=== PATIENT | male | born 1940 | race Caucasian/White ===

== ENCOUNTER 2024-10-04 15:01 | Observation (INO) ==
--- NOTE | 2024-10-04 15:28 | Emergency Department Note ---
History of Present Illness General Chief complaint: Cardiac Assessment Stated complaint: SWEATS, WEAKNESS, TIRED Time Seen by Provider: 10/04/24 15:14 History of Present Illness This is an 83-year-old male referred by PCP with complaints of "sweating, weakness, tired". The patient states that this past Wednesday he was outside painting a wall on his home. He states that while doing this he then felt sick, overwhelmed, and became drenched in sweat. He notes that he then went inside and dried off. He continued to feel tired. Blood pressure checked at that time and per was 87/52. He notes he has not felt well since that time. Patient notes this past Wednesday he tried going to [employer] but could not do so as he felt "beat". Patient does note exertional shortness of breath for some time now, nothing new. He denies any fevers. No chest pain at all. At the present time he feels okay. Home Medications Medication Instructions Recorded Confirmed Type aspirin 81 mg tablet,delayed 81 mg PO QAM 07/28/19 10/04/24 History release (Macario Low Dose Aspirin) atorvastatin 80 mg tablet 80 mg PO PM 07/28/19 10/04/24 History multivitamin 1 tab PO QPM 07/28/19 10/04/24 History omega 0-gxc-lxo-fish oil 1,200 mg 1 cap PO QPM 07/28/19 10/04/24 History (144 mg-216 mg) capsule (Fish Oil) tamsulosin 0.4 mg capsule 0.4 mg PO QPM 07/28/19 10/04/24 History warfarin 5 mg tablet 5 mg PO 3XWK 07/28/19 10/04/24 History azelastine 137 mcg (0.1 %) nasal 1 spray intranasal BID 10/04/24 10/04/24 History spray levothyroxine 75 mcg tablet 75 mcg PO DAILY 10/04/24 10/04/24 History (Unithroid) metoprolol succinate 50 mg 25 mg PO QAM 10/04/24 10/04/24 History tablet,extended release 24 hr sacubitril 24 mg-valsartan 26 mg 1 tab PO BID 10/04/24 10/04/24 History tablet (Entresto) Allergies Allergy/AdvReac Type Severity Reaction Status Date / Time No Known Allergies Allergy Unknown Verified 04/15/22 13:04 Past Med/Surg History Problem List (Updated 10/04/24 @ 21:30 by Daniel June PA-C) Hypotensive episode (Acute) Ischemic cardiomyopathy Spinal stenosis of lumbar region with radiculopathy Medical History (Updated 10/04/24 @ 21:30 by Daniel June PA-C) History of complete heart block 1979 - reason for pacemaker Osteoarthritis Spinal stenosis Degenerative disc disease Chronic back pain BPH (benign prostatic hyperplasia) Hypothyroidism On anticoagulant therapy warfarin daily Hearing deficit Pacemaker initially placed in 1979 --> most recently placed in 10/2019 Medtronic device. Myocardial Infarction 2006--follows with Dr. Abreu Hypertension Hyperlipidemia Surgical History S/P cardiac pacemaker procedure exchanged in 10/[address] Stock --> medtronic device. last checked "a couple weeks ago" S/P epidural steroid injection caudal epidural steroid injection History of tooth extraction full upper/partial lower History of tonsillectomy and adenoidectomy History of bilateral cataract extraction [place] heart [place] [facility] [place] [facility] [place] stent [place] Family History Other No family history of adverse response to anesthesia Social History Smoking Status: Never smoker Second Hand Exposure: No; Do You Dip or Chew Tobacco: No; Hx Alcohol Use: No Hx Substance Use: No Preferred Language: Central African Communication Ability: Effective Copy Lathe Tender Required: No Beliefs That Will Affect Care: None Current Living Situation: Spouse Feels Safe at Home: Yes Assistive Devices: Denture - Upper, Denture - Lower, Glasses and Hearing Aid - Bilateral Review of Systems A total of 10 systems reviewed and were otherwise negative Physical Exam Vital Signs Vital Signs - 24 hr 10/04/24 15:05 10/04/24 15:21 10/04/24 15:28 Temperature 36.3 C L Temperature Source Temporal Artery Scan Pulse Rate 75 70 70 Pulse Rate from SpO2 Sensor 70 Pulse Rhythm Regular Respiratory Rate 16 24 16 Respiratory Effort / Characteristics Non-Labored Spontaneous Respiratory Depth Normal Blood Pressure 134/74 139/78 Blood Pressure Mean 94 98 Pulse Oximetry 95 97 95 Oxygen Delivery Method Room Air Room Air Sepsis New/Unexplained Change in Mental Status No Sepsis Action Taken by Nursing No Action Required 10/04/24 15:29 10/04/24 15:45 10/04/24 16:03 Temperature Temperature Source Pulse Rate 70 70 Pulse Rate from SpO2 Sensor 70 Pulse Rhythm Respiratory Rate 18 Respiratory Effort / Characteristics Respiratory Depth Blood Pressure 121/74 Blood Pressure Mean 89 Pulse Oximetry 96 95 Oxygen Delivery Method Room Air Sepsis New/Unexplained Change in Mental Status Sepsis Action Taken by Nursing 10/04/24 16:41 10/04/24 17:02 Temperature Temperature Source Pulse Rate 70 70 Pulse Rate from SpO2 Sensor 70 70 Pulse Rhythm Respiratory Rate 22 18 Respiratory Effort / Characteristics Respiratory Depth Blood Pressure 141/75 H 128/76 Blood Pressure Mean 97 93 Pulse Oximetry 95 95 Oxygen Delivery Method Sepsis New/Unexplained Change in Mental Status Sepsis Action Taken by Nursing VITAL SIGNS - Vital signs and nursing notes were reviewed. Stable and afebrile. GENERAL -83-year-old male appearing his stated age who is in no acute distress. Communicates well with provider and answers questions appropriately. SKIN - Without rashes. No meningeal or petechial rash. HEAD - NC/AT. EYES - PERRL with EOMI bilaterally. Sclera anicteric. EARS - No deformities of external structures noted on gross examination bilaterally. NOSE - Midline and without cyanosis. No epistaxis or purulent drainage noted. MOUTH/OROPHARYNX - Without perioral cyanosis. NECK - Neck with FROM. No nuchal rigidity. LUNGS - CTA CARDIAC - RRR ABDOMEN - Abdominal contour normal without pulsations or visible masses. BS normoactive all four quadrants. No tenderness, palpable masses, hepatosplenomegaly, or ascites noted. EXTREMITIES - No clubbing or peripheral cyanosis. +5/5 strength noted in UE/LE bilaterally. NEUROLOGIC - Cranial nerves II through XII grossly intact. PSYCH -alert, oriented and pleasant on exam. Medical Decision Making Laboratory Data 10/04/24 15:19 10/04/24 15:19 Lab Results 10/04/24 Range/Units 15:19 WBC 9.57 (4.8-10.8) K/ul RBC 4.45 L (4.70-6.10) M/uL Hgb 14.8 (14.0-18.0) g/dl Hct 41.7 L (42.0-52.0) % MCV 93.7 (80.0-100.0) fL MCH 33.3 (25.0-34.0) pg MCHC 35.5 (32.0-36.0) g/dL RDW Std Deviation 45.0 (36.4-46.3) fL RDW Coeff of Radha 13.2 (11.5-14.5) % Plt Count 162 (130-400) K/uL MPV 9.7 (9.4-12.4) fL Immature Gran % (Auto) 0.2 % Neut % (Auto) 37.1 % Lymph % (Auto) 44.5 % [place] % (Auto) 10.2 % Eos % (Auto) 7.3 % Baso % (Auto) 0.7 % Neut # (Auto) 3.54 (1.40-6.50) K/uL Lymph # (Auto) 4.26 H (1.20-3.40) K/uL [place] # (Auto) 0.98 H (0.11-0.59) K/uL Eos # (Auto) 0.70 H (0.00-0.50) K/uL Baso # (Auto) 0.07 (0.00-0.20) K/uL Immature Gran # (Auto) 0.02 (0.01-0.20) K/uL PT 17.8 H (9.0-12.0) Seconds INR 1.7 H (0.9-1.1) APTT 32 H (21-31) Seconds PTT Ratio 1.2 Sodium 137 (136-145) mmol/L Potassium 3.9 (3.5-5.1) mmol/L Chloride 105 (98-107) mmol/L Carbon Dioxide 27 (21-32) mmol/L Anion Gap 5 (3-11) BUN 20 (6-23) mg/dl Creatinine 0.89 (0.6-1.4) mg/dl Est Cr Clr Drug Dosing 57.8 ml/min eGFR 84.50 BUN/Creatinine Ratio 22.5 H (10-20) Glucose 84 (70-99(Fasting)) mg/dl Calcium 8.8 (8.6-10.3) mg/dl Magnesium 2.2 (1.7-2.4) mg/dl Total Bilirubin 0.8 (0.2-1.0) mg/dl AST 19 (13-39) U/L ALT 16 (7-52) U/L Alkaline Phosphatase 85 (34-104) U/L Troponin I High Sens 6.9 (0-20) pg/ml B-Natriuretic Peptide 210 H (0-100) pg/ml Total Protein 6.8 (6.0-8.3) gm/dl Albumin 3.8 (3.4-5.0) gm/dl Globulin 3.0 (2.5-4.0) gm/dl Albumin/Globulin Ratio 1.3 (0.9-2) TSH 2.264 (0.300-4.500) uIu/ml Imaging Data Radiologist's Impression: Chest X-Ray 10/04/24 15:28 XR chest 1V portable CLINICAL HISTORY: diaphoresis, tired COMPARISON STUDY: 07/07/2006 FINDINGS: Right-sided pacemaker is present. There are old left-sided pacemaker leads. There is mild cardiomegaly without pulmonary vascular congestion. No consolidation or pleural effusion. No pneumothorax. IMPRESSION: No acute findings. ACT 112: Negative or not required by law. Electronically signed by: Cy Gutierrez M.D. 10/04/2024 3:45 PM MDM Narrative Patient was seen and evaluated as above in room B04. Review was performed of triage nursing notes and vital signs. I did review pertinent previous visits and patient history. After obtaining a thorough history and physical examination the above work up was performed. Patient presents to us today for evaluation of the above symptoms. The patient feels okay at this time but overall tired. There is no chest pain. He was referred by PCP. Options of care were discussed with the patient and at bedside. IV access was established. Labs were drawn. EKG per my interpretation shows a paced rhythm at a rate of 74 bpm. QTc 412. QRS 86. There are ST depressions noted in lead II, V6. T wave inversions are noted throughout much of the rhythm tracing. Previous to compare was from 2006 in EMR here. We will check the [email or web address] record for a more current EKG for comparison. Our ED medical case manager were able to access the [email or web address] system to provide recent cardiology visit dated 06/20/2024. Last 2D echocardiogram dated July 01, 2023 showed that the left ventricular cavity size was mildly enlarged. Wall thickness was mildly increased in segments with normal wall motion. Large sized apical, septal, anteroseptal, anterior, inferior and lateral wall motion abnormality with mild hypokinesis to dyskinesis of the segments. Moderate size septal and anterior septal scar. Qualitative LVEF at that time was 25 to 29%. LV diastolic function mildly abnormal. Moderate aortic valve sclerosis. 1640 HRS: I spoke with Dr. Samuels, [facility] fruit grader operator. We reviewed the case. My plan at this time is medical admission. He does recommend decreasing the Entresto by half. The patient may have sustained a hypotensive event causing his symptoms over the weekend. We will further evaluate in the hospital setting. I discussed the case with the hospitalist service. I do believe that further evaluation and management inpatient setting is warranted. There is no leukocytosis or concerning anemia. INR 1.7. No emergent metabolic disturbance. Troponin x 1 negative. BNP 210. TSH shows euthyroid state. GCS: 15 In the evaluation and treatment of this patient the following differential diagnoses were entertained: [place], PE, episode of hypotension, among others. Impression & Plan Hypotensive episode Discharge Plan Visit Data Chief Complaint: Cardiac Assessment Stated Complaint: SWEATS, WEAKNESS, TIRED ED Provider: Anastacio Parr ED Midlevel Provider: Daniel June Discharge Problem: Hypotensive episode Patient Disposition: Admitted As Inpatient Condition: Good
[2024-10-04 15:40] LABS: Hematocrit (blood only) 41.7 % (42.0-52.0); Hemoglobin 14.8 g/dl (14.0-18.0); Immature Granulocytes # (auto) 0.02 K/uL (0.01-0.20); Immature Granulocytes % (auto) 0.2 %; Mean Corpuscular Hemoglobin 33.3 pg (25.0-34.0); Mean Corpuscular Volume 93.7 fL (80.0-100.0); Platelet Count 162 K/uL (130-400); RDW Standard Deviation 45.0 fL (36.4-46.3); Red Blood Count 4.45 M/uL (4.70-6.10); White Blood Count 9.57 K/ul (4.8-10.8)
--- NOTE | 2024-10-04 15:46 | XRay Report ---
XR chest 1V portable CLINICAL HISTORY: diaphoresis, tired COMPARISON STUDY: 07/07/2006 FINDINGS: Right-sided pacemaker is present. There are old left-sided pacemaker leads. There is mild c ardiomegaly without pulmonary vascular congestion. No consolidation or pleural effusion. No pneumotho rax. IMPRESSION: No acute findings. ACT 112: Negative or not required by law. Electronically signed by: Cy Gutierrez M.D. 10/04/2024 3:45 PM
[2024-10-04 16:02] LABS: Alanine Aminotransferase 16.0 U/L (7-52); Albumin Globulin Ratio 1.3 (0.9-2); Alkaline Phosphatase 85.0 U/L (34-104); Anion Gap 5.0 (3-11); Bilirubin,Total 0.8 mg/dl (0.2-1.0); Blood Urea Nitrogen 20.0 mg/dl (6-23); Calcium 8.8 mg/dl (8.6-10.3); Carbon Dioxide 27.0 mmol/L (21-32); Chloride 105.0 mmol/L (98-107); Creatinine Clr Calc Pharmacy 57.8 ml/min; Globulin 3.0 gm/dl (2.5-4.0); Glucose 84.0 mg/dl (70-99(Fasting)); Magnesium 2.2 mg/dl (1.7-2.4); Potassium 3.9 mmol/L (3.5-5.1); Sodium 137.0 mmol/L (136-145); Total Protein 6.8 gm/dl (6.0-8.3)
[2024-10-04 16:16] LABS: INR 1.7 (0.9-1.1); Partial Thromboplastin Time 32 Seconds (21-31); Prothrombin Time 17.8 Seconds (9.0-12.0)
[2024-10-04 16:19] LABS: Thyroid Stimulating Hormone 2.264 uIu/ml (0.300-4.500)
--- NOTE | 2024-10-04 17:16 | History & Physical Report ---
<Statement entered by Chalo Morrison, - 10/04/24 18:18> Patient seen and examined at bedside #Hypotension -Likely secondary to cardiac GDT+ dehydration. entresto dose to be decreased per cardiology. For stress test tomorrow. NPO after MN. Date of Service October 04, 2024 Assessment & Plan (1) History of complete heart block: (2) Hypertension: (3) Hyperlipidemia: (4) Ischemic cardiomyopathy: (5) On anticoagulant therapy: (6) Hypothyroidism: (7) BPH (benign prostatic hyperplasia): (8) Spinal stenosis: (9) Degenerative disc disease: (10) Chronic back pain: Plan Episode of hypotension CAD, hx of [place] in 2006 Ischemic cardiomyopathy, EF 25 to 29% HTN HLD Chronic anticoagulation - Admit to med/tele - consult cardiology, appreciate recommendations, reducing Entresto by half, planning for nuclear stress test in the morning, make n.p.o. at midnight, - On metoprolol succinate 25 mg daily in am , was reduce in the beginning of June for similar c/o lightheadedness/headache as there was concern for low BP - EKG reviewed showing a paced rhythm - BNP 210, - INR 1.7 , trend with am labs - warfarin therapy: Home dose regimen includes: Takes 5 mg on MW, and 2.5 mg on all other days Cardiac pacemaker in situ - Pacemaker originally placed 1980, replaced 1985, 1992 right side pacemaker, 2006 pacemaker replaced [employer] model [id number]), AAA - Measuring 4.5 cm on most recent aortic duplex done in November 2023, next is scheduled for this Nov 2024 as outpatient. DDD Chronic back pain -chronic, stable Hypothyroidism - Continue levothyroxine 75 mcg daily - using Unithyroid currently - pts is not satisfied with this, would like Rx for synthroid brand name. Requested she continue discussion with her PCP. BPH - Cont flomax Osteoarthritis Chronic low back pain - Stable DVT ppx: teds, scds Lines: PIV x 1 FEN/GI: HH, NPO at midnight CODE: Full code Dispo: From home, likely to remain in the hospital x 1-2 days I spent a total of 75 minutes with greater than 50% of that time face to face with the patient, personally reviewing all current laboratories, imaging studies, past medication reconciliation, outpatient chart review, and discussion with specialists to collaborate care for the patient excluding time spent in the performance of separately billed services or time spent by another provider/QHP. Please see attending documentation for corrections and/or additions. History of Present Illness Chief Complaint: Weakness Primary Care Provider: Neel Dow MD This is a 83 yo M with PMhx CAD, ischemic cardiomyopathy with EF 25 to 29%,, dyslipidemia, AAA measuring 4.5 cm on 12/01/2023 on last abdominal aortic duplex, permanent pacemaker in situ (originally placed 1980, replaced 1985, 1992 right side pacemaker, 2006 pacemaker replaced [employer] model [id number]), who has had previous issues with low blood pressure and dizziness. He was seen by his outpatient professor of finance on 06/20/2024 where this was a complaint at that time experiencing lightheadedness, as well as headaches. He is on metoprolol succinate 25 mg daily, Entresto 24-26 mg daily. today the patient presents with his and they report episode of hypotension over the weekend with BP of 87/52. He had been working on his house and painting a wal outside in 90 degree heat. On Wednesday he attempted to go to [employer] however due to feeling weak and not well he went back home to rest. His , Kristin is present at bedside and supports the history. She reports that she is the one who made him come to the ER today for further evaluation. Today he presents to the ER. EKG is negative, showing a paced rhythm, INR 1.7, negative troponin, BNP 210, no leukocytosis afebrile, vital signs are stable. Allergies Allergy/AdvReac Type Severity Reaction Status Date / Time No Known Allergies Allergy Unknown Verified 04/15/22 13:04 Home Medications Medication Instructions Recorded Confirmed Type aspirin 81 mg tablet,delayed 81 mg PO QAM 07/28/19 10/04/24 History release (Macario Low Dose Aspirin) atorvastatin 80 mg tablet 80 mg PO PM 07/28/19 10/04/24 History multivitamin 1 tab PO QPM 07/28/19 10/04/24 History omega 8-xwa-rku-fish oil 1,200 mg 1 cap PO QPM 07/28/19 10/04/24 History (144 mg-216 mg) capsule (Fish Oil) tamsulosin 0.4 mg capsule 0.4 mg PO QPM 07/28/19 10/04/24 History warfarin 5 mg tablet 5 mg PO 3XWK 07/28/19 10/04/24 History azelastine 137 mcg (0.1 %) nasal 1 spray intranasal BID 10/04/24 10/04/24 History spray levothyroxine 75 mcg tablet 75 mcg PO DAILY 10/04/24 10/04/24 History (Unithroid) metoprolol succinate 50 mg 25 mg PO QAM 10/04/24 10/04/24 History tablet,extended release 24 hr sacubitril 24 mg-valsartan 26 mg 1 tab PO BID 10/04/24 10/04/24 History tablet (Entresto) Past Med/Surg History Problem List (Updated 10/04/24 @ 17:13 by Nata French PA-C) Ischemic cardiomyopathy Spinal stenosis of lumbar region with radiculopathy Medical History (Updated 10/04/24 @ 17:13 by Nata French PA-C) History of complete heart block 1979 - reason for pacemaker Osteoarthritis Spinal stenosis Degenerative disc disease Chronic back pain BPH (benign prostatic hyperplasia) Hypothyroidism On anticoagulant therapy warfarin daily Hearing deficit Pacemaker initially placed in 1979 --> most recently placed in 10/2019 Medtronic device. Myocardial Infarction 2006--follows with Dr. Abreu Hypertension Hyperlipidemia Surgical History S/P cardiac pacemaker procedure exchanged in 10/[address] Stock --> medtronic device. last checked "a couple weeks ago" S/P epidural steroid injection caudal epidural steroid injection History of tooth extraction full upper/partial lower History of tonsillectomy and adenoidectomy History of bilateral cataract extraction History of heart artery stent 2006 1 at [facility] [place] History of cardiac cath 2006 @ [facility] [place] with 1 stent placed Family History Other No family history of adverse response to anesthesia Social History Smoking Status: Never smoker Second Hand Exposure: No; Do You Dip or Chew Tobacco: No; Hx Alcohol Use: No Hx Substance Use: No Preferred Language: Ethiopian Communication Ability: Effective Rn Training Required: No Beliefs That Will Affect Care: None Current Living Situation: Spouse Feels Safe at Home: Yes Assistive Devices: Denture - Upper, Denture - Lower, Glasses and Hearing Aid - Bilateral Review of Systems Review of Systems: Constitutional: No fever, sweats or chills Eyes: No diplopia, no worsening or blurred vision ENT: normal hearing, no trouble swallowing Respiratory: No cough, sputum, dyspnea at rest or on exertion Cardiovascular: No chest pain, tightness or palpitations Abdomen: No pain, nausea, vomiting, diarrhea or constipation Musculoskeletal: No joint pain, calf pain, swelling Neurologic: No weakness, numbness/tingling, or balance problems Psychiatric: No anxiety or depression Skin: No rash or itch Physical Exam Physical Exam: General: awake, alert, no apparent distress, white male Head: Normocephalic, atraumatic ENT: PERRL, EOMI, no pharyngeal exudate, mucous membranes moist Chest: Clear to auscultation, on room air, no adventitious breath sounds Cardiac: Regular rate and rhythm, no murmur, no JVD, normal peripheral pulses, good capillary refill Abdominal: NABS x 4 quadrants, soft, nondistended, nontender to palpation, no rebound or guarding Extremities: Normal inspection, no peripheral edema or erythema, calfs nontender to palpation Psych: Normal mood and affect Neuro: AAO x 3, strength intact bilaterally and rated 5/5, no motor deficits, speech is clear, no peripheral sensory deficits Results & Data Results & Data Vital Signs (Past 12 Hours) Vital Signs Temp Pulse Resp BP Pulse Ox O2 Del Method 10/04/24 15:45 70 10/04/24 15:29 96 Room Air 10/04/24 15:28 70 16 95 Room Air 10/04/24 15:05 36.3 C L 75 16 134/74 95 Room Air Laboratory Results 10/04/24 15:19 WBC 9.57 RBC 4.45 L Hgb 14.8 Hct 41.7 L MCV 93.7 MCH 33.3 MCHC 35.5 RDW Std Deviation 45.0 RDW Coeff of Radha 13.2 Plt Count 162 MPV 9.7 Immature Gran % (Auto) 0.2 Neut % (Auto) 37.1 Lymph % (Auto) 44.5 [place] % (Auto) 10.2 Eos % (Auto) 7.3 Baso % (Auto) 0.7 Neut # (Auto) 3.54 Lymph # (Auto) 4.26 H [place] # (Auto) 0.98 H Eos # (Auto) 0.70 H Baso # (Auto) 0.07 Immature Gran # (Auto) 0.02 PT 17.8 H INR 1.7 H APTT 32 H PTT Ratio 1.2 Sodium 137 Potassium 3.9 Chloride 105 Carbon Dioxide 27 Anion Gap 5 BUN 20 Creatinine 0.89 Est Cr Clr Drug Dosing 57.8 eGFR 84.50 BUN/Creatinine Ratio 22.5 H Glucose 84 Calcium 8.8 Magnesium 2.2 Total Bilirubin 0.8 AST 19 ALT 16 Alkaline Phosphatase 85 Troponin I High Sens 6.9 B-Natriuretic Peptide 210 H Total Protein 6.8 Albumin 3.8 Globulin 3.0 Albumin/Globulin Ratio 1.3 TSH 2.264 Diagnostic Findings Chest X-Ray 10/04/24 15:28 XR chest 1V portable CLINICAL HISTORY: diaphoresis, tired COMPARISON STUDY: 07/07/2006 FINDINGS: Right-sided pacemaker is present. There are old left-sided pacemaker leads. There is mild cardiomegaly without pulmonary vascular congestion. No consolidation or pleural effusion. No pneumothorax. IMPRESSION: No acute findings. ACT 112: Negative or not required by law. Electronically signed by: Cy Gutierrez M.D. 10/04/2024 3:45 PM Code Status & VTE Plan Code Status Full code - discussed with the patient and at bedside
[2024-10-04] MEDS ORDERED: ACETAMINOPHEN 325 MG TAB PO PRN (21:27)
[2024-10-04] MEDS ORDERED: ONDANSETRON INJ 2 MG/ML 2 ML VIAL IV PRN (21:27)
[2024-10-04] MEDS: OMEGA-3 (PURIFIED FISH OIL) 1 GM CAP PO SCH (23:16)
[2024-10-04] MEDS: AZELASTINE HCL 0.1% NASAL 200 SPRAYS/27,400 MCG BTL SCH (23:16)
[2024-10-04] MEDS: MULTIVITAMIN TAB PO SCH (23:16)
[2024-10-04] MEDS: ATORVASTATIN 40 MG TAB PO SCH (23:16)
[2024-10-04] MEDS: WARFARIN SOD 5 MG TAB PO SCH (23:16)
[2024-10-04] MEDS: TAMSULOSIN HCL 0.4 MG CAP PO SCH (23:16)
[2024-10-04] MEDS: VALSARTAN/SACUBITRIL 26/24MG TAB PO SCH (23:22)
[2024-10-05] MEDS: LEVOTHYROXINE SODIUM 75 MCG TABLET PO SCH (06:24)
[2024-10-05 06:48] LABS: Hematocrit (blood only) 37.4 % (42.0-52.0); Hemoglobin 13.3 g/dl (14.0-18.0); Mean Corpuscular Hemoglobin 32.8 pg (25.0-34.0); Mean Corpuscular Volume 92.3 fL (80.0-100.0); Platelet Count 142 K/uL (130-400); RDW Standard Deviation 44.9 fL (36.4-46.3); Red Blood Count 4.05 M/uL (4.70-6.10); White Blood Count 7.35 K/ul (4.8-10.8)
[2024-10-05 07:06] LABS: Anion Gap 5.0 (3-11); Blood Urea Nitrogen 19.0 mg/dl (6-23); Calcium 8.6 mg/dl (8.6-10.3); Carbon Dioxide 26.0 mmol/L (21-32); Chloride 108.0 mmol/L (98-107); Creatinine Clr Calc Pharmacy 66.9 ml/min; Glucose 99.0 mg/dl (70-99(Fasting)); Potassium 4.0 mmol/L (3.5-5.1); Sodium 139.0 mmol/L (136-145)
[2024-10-05 07:11] LABS: INR 1.5 (0.9-1.1); Prothrombin Time 15.6 Seconds (9.0-12.0)
[2024-10-05] MEDS ORDERED: REGADENOSON 0.4 MG/5 ML SYR IV ONE (07:59)
--- NOTE | 2024-10-05 08:07 | Cardiology Consultation ---
Date of Consultation October 05, 2024 Assessment & Plan (1) Hypotensive episode: (2) Diaphoresis: (3) Ischemic cardiomyopathy: (4) CAD (coronary artery disease): Plan Patient is a complex 83 year old male with history of CAD/ischemic cardiomyopathy, admitted after an episode of acute weakness, dizziness, diaphoresis and hypotension occurring several days ago after working outside in his yard. He contacted cardio and PCP 2 days after event with ongoing symptoms of fatigue and low BP. He was referred to ER for further evaluation. Work up in ER included negative HS troponin x1. (Repeat pending) Other labs unremarkable. Entresto reduced to 26/24 - 1/2 tab BID given hypotension Continue metoprolol 25 mg daily continue ASA and statin. Interrogate Medtronic pacemaker device to r/o arrhythmias at onset of his dizziness/diaphoresis. Med[employer] rep notified to watch for transmission from nurses He has a complex history of cardiovascular disease with prior anterior OH in 2006 and residual distal RCA stenosis in 2008. No recent ischemic work up. Given his symptoms occurred while working outside, recommend nuclear Lexiscan stress test to r/o inducible ischemia. Await 2nd troponin. It is likely his nuclear will demonstrate prior old anterior OH as per his his tory. he has been on chronic anticoagulation with Coumadin to prevent LV thrombus given his history of apical dyskinesis/anterior OH. INR was subtherapeutic on arrival at 1.5 mg Coumadin dose is 2.5 mg alternative with 5 mg every other day. Give 5 mg today. Further recommendations pending review of nuclear Lexiscan stress test Case discussed with Dr. Parikh I spent a total of 60 minutes on the date of service in preparation, delivery, and documentation of the care provided to this patient, excluding any time spent in the performance of separately billed services. Nikki Oneill PA-C Department of Cardiology, [facility] This chart was completed in part utilizing Speech Voice Recognition Software. Grammatical errors, random word insertions, pronoun errors, and incomplete sentences are an occasional consequence of this system due to software limitations, ambient noise, and hardware issues. Any formal questions or concerns about the content, text, or information contained within the body of this dictation should be directly addressed to the provider for clarification. Supervising Physician Co-Signing Physician Notes Attending attestation: Case reviewed with the advanced practitioner. I have personally performed a history and physical examination on the patient. I have reviewed the advanced practitioner's documentation on the date of service referenced in note, and I agree with, and take responsibility for the plan of care. Subjective: Patient seen prior to, during, and after nuclear stress test. Feeling well during my assessment. Tolerated nuclear stress test well with the exception of side effects of headache and epigastric discomfort that resolved early in the post-rest recovery interval. Telemetry reveals sinus rhythm with occasional ventricular paced QRS complexes. Exam: Cardiovascular: Regular rhythm, no murmur, no edema Chest: Right infraclavicular device pocket clean dry and intact, site of the previous left-sided pacemaker clean dry and intact without erythema Data: EKG performed on presentation and noted again during the stress test revealed sinus rhythm with an age-indeterminate anterior infarct pattern with Q waves noted in leads V1-V3 and diffuse inferolateral T wave inversions otherwise. Per review of historical EKG tracings, he is typically ventricular paced so it is uncertain whether or not the repolarization abnormalities are b2b sales representative of an acute change. Nuclear stress test is negative for inducible ischemia with a large fixed perfusion defect consistent with left anterior descending coronary territory scar without superimposed ischemia. The calculated left ventricular ejection fraction of 30% is felt to likely be an overestimation of the ejection fraction related to technique, and ejection fraction is likely better assessed on the echocardiogram dating back to Jun, 2023. Remote Medtronic dual-chamber permanent pacemaker interrogation performed. Data reviewed independently and discussed with the [employer] b2b sales representative. Underlying rhythm sinus rhythm. Atrial paced 100% the time, ventricular paced 86% of the time Due to her longevity stable at 6.3 years Lead impedance stable Thresholds stable Most recent episode of nonsustained VT took place on 02/25/2024 and was 2 seconds in duration. -- No arrhythmias recorded however correlate with the patient's recent symptoms. Impression As noted above Plan: Entresto reduced to 26/24 - 1/2 tab BID given hypotension Continue metoprolol 25 mg daily continue ASA and statin. Stable from cardiology perspective for discharge on medications as noted. I spent a total of 25 minutes coordinating, documenting, and providing care for this patient excluding time spent in the performance of separately billed services or time spent by another provider. Regino Parikh DO History of Present Illness Reason for Consultation: Weakness; Hypotension; diaphoresis [facility]ing [facility] Attending [facility]: Dr. Jl History of Present Illness Patient is an 83 year old male who presented to [facility] with complaints of dizziness, diaphoresis, weakness, and hypotension over the last few days. Symptoms began while working outside in his yard on Saturday 09/30 in the heat. He became acutely dizzy/lightheaded with diaphoresis and nausea. checked HR and BP. BP was low in the 80's/50's. He tried to hydrate and slowly felt better through the day on Wednesday. However he reports he was still feeling "off" the next few days and notified the PCP and cardio office yesterday on 10/04 about his symptoms and PCP recommended ER evaluation. He denied actual chest pain or SOB with this event. He reports intermittent low BP over the last few months, often in the 80's. Due to hypotension, metoprolol was recently reduced from 50 to 25 mg daily. This mildly aided his low readings. He remained on low dose Entresto 26/24 BID. History : 1. CAD -history of OH and BMS placement to LAD in 2006; repeat cath in 2008 with patent stent and RCA distal stenosis (med management recommended) 2. Ischemic cardiomyopathy with prior anterior OH, chronic Coumadin due to apical dyskinesis and high risk for LV mural thrombus - LVEF 25% 3. dyslipidemia 4. Abdominal aortic aneurysm - 4.5 cm per duplex in 11/2023 5. pacemaker - dual chamber pacemaker since 1979 - Now right sided with retained leads on the left (no ICD) - most recent gen change was in Oct 2019 with Medtronic device On arrival to ER, BP acceptable. Labs unremarkable including HS troponin negative x1. Repeat pending this morning. EKG demonstrating atrial paced rhythm with ventricular sensing and diffuse T wave inversions. No recent EKG to compare as he is typically chronically V-Paced (86%) per last device interrogation. No recent EKG with ventricular sensing to compare. Entresto reduced due to 1/2 tab BID on admission (26/24 mg dose) BP was low this morning but no symptoms. INR was subtherapeutic. Chest X-ray was without acute process. At time of consult, patient just returned from his stress test. Currently he feels "great". Hoping to go home. No recurrent symptoms. Entresto reduced on admission. BP remains slightly low this morning but he feels this is his baseline. No chest pain or SOB. No orthopnea, PND or edema. No dizziness. Allergies Allergy/AdvReac Type Severity Reaction Status Date / Time No Known Allergies Allergy Unknown Verified 04/15/22 13:04 Home Medications Medication Instructions Recorded Confirmed Type aspirin 81 mg tablet,delayed 81 mg PO QAM 07/28/19 10/04/24 History release (Macario Low Dose Aspirin) atorvastatin 80 mg tablet 80 mg PO PM 07/28/19 10/04/24 History multivitamin 1 tab PO QPM 07/28/19 10/04/24 History omega 8-euv-xkh-fish oil 1,200 mg 1 cap PO QPM 07/28/19 10/04/24 History (144 mg-216 mg) capsule (Fish Oil) tamsulosin 0.4 mg capsule 0.4 mg PO QPM 07/28/19 10/04/24 History warfarin 5 mg tablet 5 mg PO 3XWK 07/28/19 10/04/24 History azelastine 137 mcg (0.1 %) nasal 1 spray intranasal BID 10/04/24 10/04/24 History spray levothyroxine 75 mcg tablet 75 mcg PO DAILY 10/04/24 10/04/24 History (Unithroid) metoprolol succinate 50 mg 25 mg PO QAM 10/04/24 10/04/24 History tablet,extended release 24 hr sacubitril 24 mg-valsartan 26 mg 1 tab PO BID 10/04/24 10/04/24 History tablet (Entresto) Patient History Medical History History of complete heart block 1979 - reason for pacemaker Osteoarthritis Spinal stenosis Degenerative disc disease Chronic back pain BPH (benign prostatic hyperplasia) Hypothyroidism On anticoagulant therapy warfarin daily Hearing deficit Pacemaker initially placed in 1979 --> most recently placed in 10/2019 Medtronic device. Myocardial Infarction 2006--follows with Dr. Abreu Hypertension Hyperlipidemia Surgical History S/P cardiac pacemaker procedure exchanged in 10/[address] Stock --> medtronic device. last checked "a couple weeks ago" S/P epidural steroid injection caudal epidural steroid injection History of tooth extraction full upper/partial lower History of tonsillectomy and adenoidectomy History of bilateral cataract extraction History of heart artery stent 2006 1 at [facility] [place] History of cardiac cath 2007 @ [facility] [place] with 1 stent placed Family History Other No family history of adverse response to anesthesia Social History Smoking Status: Former smoker Tobacco Type: Cigarettes Smoking End Date: 40 yrs ago; Second Hand Exposure: No; Do You Dip or Chew Tobacco: No; Hx Alcohol Use: No Hx Substance Use: No Preferred Language: [place] Communication Ability: Effective Security Controls Assessor Required: No Beliefs That Will Affect Care: None Current Living Situation: Spouse Feels Safe at Home: Yes Safety Concerns: Feels Safe At This Time Assistive Devices: Denture - Upper, Denture - Lower, Glasses and Hearing Aid - Bilateral Assistive Devices Comment: lower partial Review of Systems Review of Systems: All systems reviewed & are unremarkable except as noted in HPI & below Physical Exam Constitutional: WD/WN, vitals as above no acute distress Neck: trachea midline, no thyromegaly Respiratory: normal respiratory effort, lungs clear to auscultation Cardiovascular: Rate/Rhythm: regular rate and regular rhythm Heart Sounds: no murmur Vessels: no JVD Extremities: no edema Chest (Breasts): Chest: + pacemaker (no erythema or drainage at pacer site) Gastrointestinal (Abdomen): normal bowel sounds, soft, nontender, no hepatosplenomegaly Musculoskeletal: no cyanosis or clubbing, extremities motor strength 5/5 Neurologic: PERRL, EOMI, accommodation nl, no face palsy, no dysarthria Results & Data Vital Signs (Past 12 Hours) Vital Signs Temp Pulse Pulse Resp BP Pulse Ox O2 Del Method 10/05/24 07:28 70 10/05/24 02:40 36.5 C 78 18 119/76 93 Room Air 10/04/24 23:28 36.9 C 72 18 127/80 92 Room Air 10/04/24 22:11 81 10/04/24 20:56 36.5 C 71 16 118/68 95 Room Air Laboratory Results Cardiac Enzymes 10/04/24 Range/Units 15:19 AST 19 (13-39) U/L Troponin I High Sens 6.9 (0-20) pg/ml B-Natriuretic Peptide 210 H (0-100) pg/ml Coagulation 10/04/24 10/05/24 Range/Units 15:19 06:16 PT 17.8 H 15.6 H (9.0-12.0) Seconds APTT 32 H (21-31) Seconds B-Natriuretic Peptide 210 H (0-100) pg/ml CBC 10/04/24 10/05/24 Range/Units 15:19 06:16 WBC 9.57 7.35 (4.8-10.8) K/ul RBC 4.45 L 4.05 L (4.70-6.10) M/uL Hgb 14.8 13.3 L (14.0-18.0) g/dl Hct 41.7 L 37.4 L (42.0-52.0) % Plt Count 162 142 (130-400) K/uL Neut # (Auto) 3.54 (1.40-6.50) K/uL Lymph # (Auto) 4.26 H (1.20-3.40) K/uL [place] # (Auto) 0.98 H (0.11-0.59) K/uL Eos # (Auto) 0.70 H (0.00-0.50) K/uL Baso # (Auto) 0.07 (0.00-0.20) K/uL Comprehensive Metabolic Panel 10/04/24 10/05/24 Range/Units 15:19 06:16 Sodium 137 139 (136-145) mmol/L Potassium 3.9 4.0 (3.5-5.1) mmol/L Chloride 105 108 H (98-107) mmol/L Carbon Dioxide 27 26 (21-32) mmol/L BUN 20 19 (6-23) mg/dl Creatinine 0.89 0.83 (0.6-1.4) mg/dl Glucose 84 99 (70-99(Fasting)) mg/dl Calcium 8.8 8.6 (8.6-10.3) mg/dl AST 19 (13-39) U/L ALT 16 (7-52) U/L Alkaline Phosphatase 85 (34-104) U/L Total Protein 6.8 (6.0-8.3) gm/dl Albumin 3.8 (3.4-5.0) gm/dl Intake and Output 10/04/24 10/05/24 10/05/24 22:59 06:59 14:59 Other: Weight 79.1 kg 79.4 kg Weight Measurement Method Built in [facility] Built in [facility] Diagnostic Findings Telemetry reviewed: atrial paced, ventricular sensed with T wave inversions on EKG Device interrogation - pending Nuclear stress test - pending EKG reviewed 10/04/24: Atrial paced rhythm with prolonged AV conduction ventricular sensed T wave inversion in inferolateral leads. Chest X-Ray 10/04/24 15:28 XR chest 1V portable CLINICAL HISTORY: diaphoresis, tired COMPARISON STUDY: 07/07/2006 FINDINGS: Right-sided pacemaker is present. There are old left-sided pacemaker leads. There is mild cardiomegaly without pulmonary vascular congestion. No consolidation or pleural effusion. No pneumothorax. IMPRESSION: No acute findings. ACT 112: Negative or not required by law Prior outpatient data: Pacemaker report reviewed dated Jul 2024: Appropriate function and battery longevity of 6.25 years atrial paced - 99% RV paced - 96% 0% afib burden Echo report reviewed from June 2023: 2D echocardiogram report July 01, 2023: The left ventricular cavity size is mildly enlarged. The wall thickness is mildly increased in segments with normal wall motion. There is a large sized apical, septal, anteroseptal, anterior, inferior, and lateral wall motion abnormality with mild hypokinesis to dyskinesis of the segments. There is a moderate sized septal and anteroseptal scar. The qualitative LV ejection fraction is 25-29% (severely reduced). The left ventricular diastolic function is mildly abnormal (grade I). Moderate aortic valve sclerosis is present. There is no significant valvular insufficiency There is no evidence of pulmonary hypertension. In comparison to June 18, 2022, no significant change Medications Administered Current Inpatient Medications Acetaminophen (Acetaminophen 325 Mg Tab) 650 mg PO Q4H PRN PRN Reason: Moderate Pain (Scale 4, 5, 6) Stop: 11/03/24 21:26 Aspirin (Aspirin 81 Mg Ectab) 81 mg PO QAM [facility] Stop: 11/04/24 08:59 Atorvastatin Calcium (Atorvastatin 40 Mg Tab) 80 mg PO PM [facility] Stop: 11/03/24 21:26 Last Admin: 10/04/24 23:16 Dose: 80 mg Azelastine HCl (Azelastine Hcl 0.1% Nasal 200 Sprays/27,400 Mcg Btl) 1 sprays NA BID [facility] Stop: 11/03/24 21:26 Last Admin: 10/04/24 23:16 Dose: 1 sprays Fish Oil ([place]-3 (Purified Fish Oil) 1 Gm Cap) 1 cap PO QPM [facility] Stop: 11/03/24 21:26 Last Admin: 10/04/24 23:16 Dose: 1 cap Levothyroxine Sodium (Levothyroxine Sodium 75 Mcg Tablet) 75 mcg PO DAILYBB [facility] Stop: 11/04/24 06:29 Last Admin: 10/05/24 06:24 Dose: 75 mcg Metoprolol Succinate (Metoprolol Succ 25mg Ext Rel Tab) 25 mg PO QAM [facility] Stop: 11/04/24 08:59 Multivitamins (Multivitamin Tab) 1 tab PO QPM [facility] Stop: 11/03/24 21:26 Last Admin: 10/04/24 23:16 Dose: 1 tab Ondansetron HCl (Ondansetron Inj 2 Mg/Ml 2 Ml Vial) 4 mg IV Q4H PRN PRN Reason: Nausea And Vomiting Stop: 11/03/24 21:26 Sacubitril/Valsartan (Valsartan/Sacubitril 26/24mg Tab) 0.5 tab PO BID [facility] Stop: 11/03/24 21:26 Last Admin: 10/04/24 23:22 Dose: 0.5 tab Tamsulosin HCl (Tamsulosin Hcl 0.4 Mg Cap) 0.4 mg PO QPM [facility] Stop: 11/03/24 21:26 Last Admin: 10/04/24 23:16 Dose: 0.4 mg Warfarin Sodium (Warfarin Sod 5 Mg Tab) 5 mg PO [id number] [facility] Stop: 11/03/24 21:29 Last Admin: 10/04/24 23:16 Dose: 5 mg Warfarin Sodium (Warfarin Sod 2.5 Mg Tab) 2.5 mg PO SuTuThSa [facility] Stop: 11/04/24 15:59 PG Care Time/CCT Total # of Minutes Spent Total Time Spent with Patient: Total time spent is greater than 50% in coordination of care (as documented) at patient's floor/unit and/or counseling patient: 60 minutes Coding Level of Care Code 51107 INT INP/OBS CARE 3/75MIN Diagnoses Hypotensive episode I95.9 Diaphoresis R61 Ischemic cardiomyopathy I25.5 Coronary artery disease involving citizen [place] coronary artery of citizen [place] heart without angina pectoris I25.10 Associated angina: without angina Coronary Disease-Associated Artery/Lesion type: citizen [place] artery [place] vs. transplanted heart: citizen [place] heart Time Spent (min) 85 Comment 60 minutes by Galina Oneill PA-C, [address] Parikh (4) CAD (coronary artery disease) Associated angina: without angina Coronary Disease-Associated Artery/Lesion type: citizen [place] artery [place] vs. transplanted heart: citizen [place] heart Qualified Code(s): I25.10 - Atherosclerotic heart disease of citizen [place] coronary artery without angina pectoris
[2024-10-05 08:30] VITALS: RESP 17; TEMP 97.9
[2024-10-05] MEDS: ASPIRIN 81 MG ECTAB PO SCH (10:40)
[2024-10-05] MEDS: METOPROLOL SUCC 25MG EXT REL TAB PO SCH (10:40)
[2024-10-05 11:41] VITALS: BP 109/72; O2SAT 93
--- NOTE | 2024-10-05 11:46 | Myocardial Perfusion Study ---
Date of Service October 05, 2024 Myocardial Perfusion Study [facility] Myocardial Perfusion Study Report Procedure: 1. Myocardial perfusion study performed in multiple views/images 2. Lexiscan pharmacologic stress ECG Indication: 1. Episode of profound diaphoresis, history of CAD, ischemic cardiomyopathy Ordering physician:France Parikh DO Procedural details: For the stress portion of the study, Lexiscan 0.4 mg was intravenously administered followed by a saline flush. This was followed by 30.1 mCi of technetium 99m Cardiolite, injected at 9:25 AM on 10/05/2024. 30 minutes following the injection, imaging of the heart was performed in multiple projections. For the rest portion of the study, 10.8 mCi technetium 99m Cardiolite was injected intravenously at 7:30 AM on 10/05/2024. 1 hour following the injection, imaging of the heart was performed in the same projections. Lexiscan stress ECG: Resting ECG demonstrated: Sinus rhythm in the 70s with age-indeterminate anterior infarct pattern, Q waves in leads V1V3, diffuse inferolateral T wave inversions. Maximum heart rate: 76 bpm Maximal, age-predicted heart rate: 55% Resting blood pressure: 122/67 mmHg Maximum blood pressure: 122/67 mmHg The stress ECG response was negative for ischemia with baseline repolarization abnormalities that were relatively unchanged with pharmacologic stress. Arrhythmia: Rare isolated premature ventricular contraction Symptoms: No chest discomfort reported. Patient experienced headache and transient epigastric discomfort with the administration of regadenoson. Symptoms resolved spontaneously early in the post-rest recovery interval. Patient subsequently received caffeinated cola after his symptoms had already resolved. Findings: Rotating raw imaging demonstrated no significant lung uptake. There is no significant motion artifact. Heart size appeared normal. Myocardial perfusion demonstrated a large sized fixed anterior perfusion defect affecting the mid and apical segments of the anterior wall, apex, and apical inferior wall. Ejection fraction: 30%, however this is felt to likely be an over estimation of the left ventricular ejection fraction, with technical difficulty with regards to calculating the left ventricular volumes due to few counts at the apical segments. Wall motion: Anterior, apical, apical inferior akinesis No significant transient ischemic dilation. Impression: 1. Abnormal pharmacologic myocardial perfusion imaging study revealing a large sized left anterior descending coronary territory scar without superimposed ischemia. 2. The left ventricular ejection fraction was calculated to be 30% my the gated SPECT Technique (moderately reduced), however this is felt to likely be an over estimation of the left ventricular ejection fraction, with technical difficulty with regards to calculating the left ventricular volumes due to minimal counts at the apical segments.
--- NOTE | 2024-10-05 14:22 | Hospitalist Progress Note ---
Date of Service October 05, 2024 Assessment & Plan (1) History of complete heart block: (2) Hypertension: (3) Hyperlipidemia: (4) Ischemic cardiomyopathy: (5) On anticoagulant therapy: (6) Hypothyroidism: (7) BPH (benign prostatic hyperplasia): (8) Spinal stenosis: (9) Degenerative disc disease: (10) Chronic back pain: Plan Episode of hypotension CAD, hx of [place] in 2006 Ischemic cardiomyopathy, EF 25 to 29% HTN HLD Chronic anticoagulation - Admit to med/tele - consult cardiology, appreciate recommendations, reducing Entresto by half, planning for nuclear stress test in the morning, make n.p.o. at midnight, - On metoprolol succinate 25 mg daily in am , was reduce in the beginning of June for similar c/o lightheadedness/headache as there was concern for low BP - EKG reviewed showing a paced rhythm - BNP 210, - INR 1.7 , trend with am labs - warfarin therapy: Home dose regimen includes: Takes 5 mg on MWF, and 2.5 mg on all other days 10/05 Status post nuclear stress test: Negative for inducible ischemia Status post pacemaker interrogation: No arrhythmias recorded evaluated by Dr. Parikh, recommendations: Nuclear stress test is negative for inducible ischemia with a large fixed perfusion defect consistent with left anterior descending coronary territory scar without superimposed ischemia. The calculated left ventricular ejection fraction of 30% is felt to likely be an overestimation of the ejection fraction related to technique, and ejection fraction is likely better assessed on the echocardiogram dating back to Jun, 2023. Remote [employer] dual-chamber permanent pacemaker interrogation performed. Data reviewed independently and discussed with the [employer] wholesale representative. Underlying rhythm sinus rhythm. Atrial paced 100% the time, ventricular paced 86% of the time Due to her longevity stable at 6.3 years Lead impedance stable Thresholds stable Most recent episode of nonsustained VT took place on 02/25/2024 and was 2 seconds in duration. -- No arrhythmias recorded however correlate with the patient's recent symptoms. Impression As noted above Plan: Entresto reduced to 26/24 - 1/2 tab BID given hypotension Continue metoprolol 25 mg daily continue ASA and statin. Cardiac pacemaker in situ - Pacemaker originally placed 1980, replaced 1985, 1992 right side pacemaker, 2006 pacemaker replaced [employer] model [id number]), AAA - Measuring 4.5 cm on most recent aortic duplex done in November 2023, next is scheduled for this Nov 2024 as outpatient. DDD Chronic back pain -chronic, stable Hypothyroidism - Continue levothyroxine 75 mcg daily - using Unithyroid currently - pts is not satisfied with this, would like Rx for synthroid brand name. Requested she continue discussion with her PCP. BPH - Cont flomax Osteoarthritis Chronic low back pain - Stable DVT ppx: teds, scds Lines: PIV x 1 FEN/GI: HH, NPO at midnight CODE: Full code Dispo: Discharge to home PCP follow-up in 1 year Cardiology follow-up as scheduled Admission and Anticipated Discharge Date Admission Date: October 04, 2024 Subjective seen resting in bed, comfortable states he feels fine overall no chest pain, dyspnea, palpitations, dizziness no abdominal pain, nausea no other symptoms Review of Systems Review of Systems: all noted and negative except for above Physical Exam Physical Exam: General- oriented x 3, not in distress, speaks in sentences with no effort or accessory muscle use Eyes- anicteric Neck- no JVD Lungs- clear breath sounds bilaterally, no rales/wheezes Heart- normal rate, regular rhythm; no murmurs Abdomen- normal bowel sounds, nondistended, soft, nontender Extremities- no pretibial edema, no calf tenderness Neuro- alert, oriented x 3; no gross focal neurologic deficits Skin- warm & dry Results & Data Results & Data Vital Signs (Past 12 Hours) Vital Signs Temp Pulse Pulse Resp BP Pulse Ox O2 Del Method 10/05/24 11:41 36.6 C 71 17 109/72 93 Room Air 10/05/24 08:29 36.6 C 69 17 97/62 L 92 Room Air 10/05/24 07:28 70 10/05/24 02:40 36.5 C 78 18 119/76 93 Room Air all noted and reviewed including below
--- NOTE | 2024-10-05 14:36 | Communication Note ---
Date of Service: October 05, 2024 By CMS guidelines, a determination that the admission or continued stay is not medically necessary has been made by a member of the UR committee and a ph ysician for this hospital stay, therefore a Code 44 will be completed and the Inpatient admission will be changed to outpatient.
--- NOTE | 2024-10-05 14:44 | Discharge Summary ---
Discharge Summary Date of Service October 05, 2024 Principal Dx & Hospital Course #1 = Principal Diagnosis (1) History of complete heart block: (2) Hypertension: (3) Hyperlipidemia: (4) Ischemic cardiomyopathy: (5) On anticoagulant therapy: (6) Hypothyroidism: (7) BPH (benign prostatic hyperplasia): (8) Spinal stenosis: (9) Degenerative disc disease: (10) Chronic back pain: Plan Episode of hypotension CAD, hx of [place] in 2006 Ischemic cardiomyopathy, EF 25 to 29% HTN HLD Chronic anticoagulation - Admit to med/tele - consult cardiology, appreciate recommendations, reducing Entresto by half, p cesar for nuclear stress test in the morning, make n.p.o. at midnight, - On metoprolol succinate 25 mg daily in am , was reduce in the beginning of June for similar c/o lightheadedness/headache as there was concern for low BP - EKG reviewed showing a paced rhythm - BNP 210, - INR 1.7 , trend with am labs - warfarin therapy: Home dose regimen includes: Takes 5 mg on MWF, and 2.5 mg on all other days 10/05 Status post nuclear stress test: Negative for inducible ischemia Status post pacemaker interrogation: No arrhythmias recorded evaluated by Dr. Parikh, recommendations: Nuclear stress test is negative for inducible ischemia with a large fixed perfusion defect consistent with left anterior descending coronary territory scar without superimposed ischemia. The calculated left ventricular ejection fraction of 30% is felt to likely be an overestimation of the ejection fraction related to technique, and ejection fraction is likely better assessed on the echocardiogram dating back to Jun, 2023. Remote [employer] dual-chamber permanent pacemaker interrogation performed. Data reviewed independently and discussed with the [employer] eligibility services representative. Underlying rhythm sinus rhythm. Atrial paced 100% the time, ventricular paced 86% of the time Due to her longevity stable at 6.3 years Lead impedance stable Thresholds stable Most recent episode of nonsustained VT took place on 02/25/2024 and was 2 seconds in duration. -- No arrhythmias recorded however correlate with the patient's recent symptoms. Impression As noted above Plan: Entresto reduced to 26/24 - 1/2 tab BID given hypotension Continue metoprolol 25 mg daily continue ASA and statin. Cardiac pacemaker in situ - Pacemaker originally placed 1980, replaced 1985, 1992 right side pacemaker, 2006 pacemaker replaced [employer] model [id number]), AAA - Measuring 4.5 cm on most recent aortic duplex done in November 2023, next is scheduled for this Nov 2024 as outpatient. DDD Chronic back pain -chronic, stable Hypothyroidism - Continue levothyroxine 75 mcg daily - using Unithyroid currently - pts is not satisfied with this, would like Rx for synthroid brand name. Requested she continue discussion with her PCP. BPH - Cont flomax Osteoarthritis Chronic low back pain - Stable DVT ppx: teds, scds Lines: PIV x 1 FEN/GI: HH, NPO at midnight CODE: Full code Dispo: Discharge to home PCP follow-up in 1 year Cardiology follow-up as scheduled Notes For Next Care Provider Medication Changes From Visit Entresto decreased by 50% Admission HPI Per Admitting Provider This is a 83 yo M with PMhx CAD, ischemic cardiomyopathy with EF 25 to 29%,, dyslipidemia, AAA measuring 4.5 cm on 12/01/2023 on last abdominal aortic duplex, permanent pacemaker in situ (originally placed 1980, replaced 1985, 1992 right side pacemaker, 2006 pacemaker replaced [employer] model [id number]), who has had previous issues with low blood pressure and dizziness. He was seen by his outpatient grizzly worker on 06/20/2024 where this was a complaint at that time experiencing lightheadedness, as well as headaches. He is on metoprolol succinate 25 mg daily, Entresto 24-26 mg daily. today the patient presents with his and they report episode of hypotension over the weekend with BP of 87/52. He had been working on his house and painting a wal outside in 90 degree heat. On Wednesday he attempted to go to buddhist however due to feeling weak and not well he went back home to rest. His , Kristin is present at bedside and supports the history. She reports that she is the one who made him come to the ER today for further evaluation. Today he presents to the ER. EKG is negative, showing a paced rhythm, INR 1.7, negative troponin, BNP 210, no leukocytosis afebrile, vital signs are stable. Admission Exam Per Admitting Provider General: awake, alert, no apparent distress, white male Head: Normocephalic, atraumatic ENT: PERRL, EOMI, no pharyngeal exudate, mucous membranes moist Chest: Clear to auscultation, on room air, no adventitious breath sounds Cardiac: Regular rate and rhythm, no murmur, no JVD, normal peripheral pulses, good capillary refill Abdominal: NABS x 4 quadrants, soft, nondistended, nontender to palpation, no rebound or guarding Extremities: Normal inspection, no peripheral edema or erythema, calfs nontender to palpation Psych: Normal mood and affect Neuro: AAO x 3, strength intact bilaterally and rated 5/5, no motor deficits, speech is clear, no peripheral sensory deficits Discharge Exam General- oriented x 3, not in distress, speaks in sentences with no effort or accessory muscle use Eyes- anicteric Neck- no JVD Lungs- clear breath sounds bilaterally, no rales/wheezes Heart- normal rate, regular rhythm; no murmurs Abdomen- normal bowel sounds, nondistended, soft, nontender Extremities- no pretibial edema, no calf tenderness Neuro- alert, oriented x 3; no gross focal neurologic deficits Skin- warm & dry Updated Medication List Medication Instructions Recorded Confirmed Type aspirin 81 mg tablet,delayed 81 mg PO QAM 07/28/19 10/04/24 History release (Macario Low Dose Aspirin) atorvastatin 80 mg tablet 80 mg PO PM 07/28/19 10/04/24 History multivitamin 1 tab PO QPM 07/28/19 10/04/24 History omega 9-wsu-bhi-fish oil 1,200 mg 1 cap PO QPM 07/28/19 10/04/24 History (144 mg-216 mg) capsule (Fish Oil) tamsulosin 0.4 mg capsule 0.4 mg PO QPM 07/28/19 10/04/24 History warfarin 5 mg tablet 5 mg PO 3XWK 07/28/19 10/04/24 History azelastine 137 mcg (0.1 %) nasal 1 spray intranasal BID 10/04/24 10/04/24 History spray levothyroxine 75 mcg tablet 75 mcg PO DAILY 10/04/24 10/04/24 History (Unithroid) metoprolol succinate 50 mg 25 mg PO QAM 10/04/24 10/04/24 History tablet,extended release 24 hr sacubitril 24 mg-valsartan 26 mg 1 tab PO BID 10/04/24 10/04/24 History tablet (Entresto) Hospital Stay Data Consultations 10/04/24 17:07 ED Decision to Admit Stat 10/04/24 21:27 Consult Cardiology Routine Diagnostic Imagining Performed Laboratory Results WBC 7.35 K/ul (4.8-10.8) 10/05/24 06:16 RBC 4.05 M/uL (4.70-6.10) L 10/05/24 06:16 Hgb 13.3 g/dl (14.0-18.0) L 10/05/24 06:16 Hct 37.4 % (42.0-52.0) L 10/05/24 06:16 MCV 92.3 fL (80.0-100.0) 10/05/24 06:16 MCH 32.8 pg (25.0-34.0) 10/05/24 06:16 MCHC 35.6 g/dL (32.0-36.0) 10/05/24 06:16 RDW Std Deviation 44.9 fL (36.4-46.3) 10/05/24 06:16 RDW Coeff of Radha 13.2 % (11.5-14.5) 10/05/24 06:16 Plt Count 142 K/uL (130-400) 10/05/24 06:16 MPV 9.8 fL (9.4-12.4) 10/05/24 06:16 Immature Gran % (Auto) 0.2 % 10/04/24 15:19 Neut % (Auto) 37.1 % 10/04/24 15:19 Lymph % (Auto) 44.5 % 10/04/24 15:19 Smyth % (Auto) 10.2 % 10/04/24 15:19 Eos % (Auto) 7.3 % 10/04/24 15:19 Baso % (Auto) 0.7 % 10/04/24 15:19 Neut # (Auto) 3.54 K/uL (1.40-6.50) 10/04/24 15:19 Lymph # (Auto) 4.26 K/uL (1.20-3.40) H 10/04/24 15:19 Smyth # (Auto) 0.98 K/uL (0.11-0.59) H 10/04/24 15:19 Eos # (Auto) 0.70 K/uL (0.00-0.50) H 10/04/24 15:19 Baso # (Auto) 0.07 K/uL (0.00-0.20) 10/04/24 15:19 Immature Gran # (Auto) 0.02 K/uL (0.01-0.20) 10/04/24 15:19 PT 15.6 Seconds (9.0-12.0) H 10/05/24 06:16 INR 1.5 (0.9-1.1) H 10/05/24 06:16 APTT 32 Seconds (21-31) H 10/04/24 15:19 PTT Ratio 1.2 10/04/24 15:19 Sodium 139 mmol/L (136-145) 10/05/24 06:16 Potassium 4.0 mmol/L (3.5-5.1) 10/05/24 06:16 Chloride 108 mmol/L (98-107) H 10/05/24 06:16 Carbon Dioxide 26 mmol/L (21-32) 10/05/24 06:16 Anion Gap 5 (3-11) 10/05/24 06:16 BUN 19 mg/dl (6-23) 10/05/24 06:16 Creatinine 0.83 mg/dl (0.6-1.4) 10/05/24 06:16 Est Cr Clr Drug Dosing 66.9 ml/min 10/05/24 06:16 eGFR 86.30 10/05/24 06:16 BUN/Creatinine Ratio 22.9 (10-20) H 10/05/24 06:16 Glucose 99 mg/dl (70-99(Fasting)) 10/05/24 06:16 Calcium 8.6 mg/dl (8.6-10.3) 10/05/24 06:16 Magnesium 2.2 mg/dl (1.7-2.4) 10/04/24 15:19 Total Bilirubin 0.8 mg/dl (0.2-1.0) 10/04/24 15:19 AST 19 U/L (13-39) 10/04/24 15:19 ALT 16 U/L (7-52) 10/04/24 15:19 Alkaline Phosphatase 85 U/L (34-104) 10/04/24 15:19 Troponin I High Sens 7.2 pg/ml (0-20) 10/05/24 06:16 B-Natriuretic Peptide 210 pg/ml (0-100) H 10/04/24 15:19 Total Protein 6.8 gm/dl (6.0-8.3) 10/04/24 15:19 Albumin 3.8 gm/dl (3.4-5.0) 10/04/24 15:19 Globulin 3.0 gm/dl (2.5-4.0) 10/04/24 15:19 Albumin/Globulin Ratio 1.3 (0.9-2) 10/04/24 15:19 TSH 2.264 uIu/ml (0.300-4.500) 10/04/24 15:19 Impressions Chest X-Ray 10/04/24 15:28 XR chest 1V portable CLINICAL HISTORY: diaphoresis, tired COMPARISON STUDY: 07/07/2006 FINDINGS: Right-sided pacemaker is present. There are old left-sided pacemaker leads. There is mild cardiomegaly without pulmonary vascular congestion. No consolidation or pleural effusion. No pneumothorax. IMPRESSION: No acute findings. ACT 112: Negative or not required by law. Electronically signed by: Cy Gutierrez M.D. 10/04/2024 3:45 PM Pending Results Patient Have Any Pending Studies at Discharge: No Discharge Instructions Given to Patient (Per Discharging Provider) PLEASE REFER TO YOUR NEW MEDICATION LIST AND FOLLOW INSTRUCTIONS CAREFULLY. YOUR NEW MEDICATIONS INCLUDE: Lower the dose of Entresto instead of 1 tablet twice a day, take only 1/2 tablet twice a day. For today, October 05, 2024, take total of 5 mg Coumadin, then resume your usual dosing starting tomorrow. The Coumadin clinic will be calling you tomorrow for further advice. PLEASE CALL YOUR PRIMARY CARE PHYSICIAN OR RETURN TO THE ER IF WITH WORSENING OF SYMPTOMS, INCLUDING Dizziness, lightheadedness, chest pain, shortness of breath, palpitations, weakness, etc. FOLLOW UP WITH PRIMARY CARE PHYSICIAN OUTLINED ABOVE. Follow-up with your grizzly worker as scheduled. Total Time Total Time Spent Total Time Spent (In Minutes): 50 minutes
[2024-10-05] MEDS ORDERED: WARFARIN SOD 2.5 MG TAB PO SCH (16:00)
[2024-10-05 16:49] VITALS: PULSE 78
--- NOTE | 2024-10-07 07:33 | Electrocardiogram Report ---
Test Reason : Blood Pressure : */* mmHG Vent. Rate : 74 BPM Atrial Rate : * BPM P-R Int : * ms QRS Dur : 86 ms QT Int : 372 ms P-R-T Axes : * -16 235 degrees QTcB Int : 412 ms Atrial-paced rhythm Anteroseptal infarct , age undetermined Abnormal ECG When compared with ECG of 07-Jul-2006 14:59, Ventricular pacing is no longer present Confirmed by Simone Saavedra ([id number]) on 10/07/2024 7:33:11 AM Referred By: Confirmed By: Simone Saavedra
== END 2024-10-05 16:10 | disposition home or self-care (01) | DRG 315 ==
LOC: ED 15:01 → INTOOBSV 17:19 → SUATTDRO 17:19 → 2N 17:19